=== PATIENT | female | born 2000 | race Caucasian/White ===

== ENCOUNTER 2019-04-30 10:30 | Emergency (ER) | payer OTHER, MEDICAID, SELFPAY ==
[2019-04-30 11:04] VITALS: BP 120/55; PULSE 98; RESP 16; TEMP 36.6; O2SAT 97; BMI 29.7
--- NOTE | 2019-04-30 11:28 | ED.URI ---
HPI - URI/Sore Throat General Chief Complaint: Upper Respiratory Symptoms Stated Complaint: fever,chest congestion Time Seen by Provider: 04/30/19 11:07 Source: patient Mode of arrival: Ambulatory Limitations: no limitations History of Present Illness HPI Narrative: Otherwise healthy 18-year-old female here for a couple days of sinus congestion, sore throat, cough. She does have a history of asthma. Has been using her albuterol inhaler. Also describes subjective fevers. Has not tried anything for symptoms prior to arrival. Related Data Previous Rx's Medication Instructions Recorded albuterol sulfate 2 puff INHALATION Q4-6H PRN #18 04/30/19 gram Review of Systems Constitutional Constitutional: Reports fever(s) ENT Ears, Nose, Mouth, and Throat: Denies neck pain, Reports sore throat and Denies throat swelling Cardiovascular Cardiovascular: Denies chest pain and Reports dyspnea Respiratory Respiratory: Reports cough, Reports dyspnea and Denies wheezing Gastrointestinal Gastrointestinal: Denies abdominal pain, Denies nausea and Denies vomiting Musculoskeletal Musculoskeletal: Denies neck pain Integumentary/Breasts Skin/Breast: Denies lesions and Denies rash Neurologic Neurologic: Denies behavioral changes Psychiatric Psychiatric: Denies behavioral changes Hematologic/Lymphatic Hematologic/Lymphatic: Denies easy bleeding and Denies easy bruising Allergic/Immunologic Allergic/Immunologic: Denies urticaria, Denies throat swelling and Denies wheezing [facility] Medical History Asthma (Acute) Social History marital status: lives independently: Yes Social History marital status: lives independently: Yes Exam Initial Vital Signs Initial Vital Signs: Vital Signs Temperature 97.8 F 04/30/19 11:04 Pulse Rate 98 H 04/30/19 11:04 Respiratory Rate 16 04/30/19 11:04 Blood Pressure 120/55 L 04/30/19 11:04 Pulse Oximetry 97 04/30/19 11:04 Const General: cooperative, comfortable and well developed Orientation: alert and awake HENMT Head: normal to inspection and normocephalic Ears: TM's normal bilaterally Face and sinus: normal facial exam Mouth: oral mucosae normal Throat: posterior oropharynx normal Resp Effort & Inspection: normal respiratory effort Auscultation: clear to auscultation bilaterally Cardio Rate: regular rate Rhythm: regular rhythm Skin Lesions: no lesions Rashes: no rashes Neuro General: alert and awake Cognition: normal cognition Speech: speech normal Motor: muscle tone normal throughout Extrem General: normal to inspection and capillary refill normal Psych Appearance: grossly normal and well kempt Course Vital Signs Vital signs: Vital Signs - 8 hr 04/30/19 11:04 Temperature 97.8 F Pulse Rate 98 H Respiratory Rate 16 Blood Pressure 120/55 L Pulse Oximetry 97 MDM - URI/Sore Throat MDM Narrative Medical decision making narrative: Patient is nontoxic appearing. His history and physical exam consistent with an upper respiratory infection. Low suspicion for strep throat. Low suspicion for pneumonia. Will hold on radiologic studies for now. We did discuss return precautions and follow-up instructions. We did discuss the home use of decongestants. Patient expressed understanding and agreement plan. Discharge Plan Departure Patient Disposition: Home Clinical Impression: Upper respiratory infection Qualifiers: URI type: unspecified URI Qualified Code(s): J06.9 - Acute upper respiratory infection, unspecified Instructions: DI for Viral Upper Respiratory Infection -- Adult Activity Restrictions/Additional Instructions: Recommend that you start an [id number] decongestant such as Claritin or the generic version of this medication like we discussed. Use your albuterol inhaler as needed. Contact your primary provider for a follow-up. Return to the emergency department for any new or worsening symptoms Prescriptions: New albuterol sulfate 90 mcg/actuation HFA aerosol inhaler 2 puff INHALATION Q4-6H PRN (Reason: shortness of breath or wheezing) Qty: 18 RF: 0
== END 2019-04-30 11:43 | disposition home or self-care (01) ==
PROVIDERS: Emergency Provider Emergency Medicine
DX: J06.9 Acute upper respiratory infection, unspecified (principal)
CPT/HCPCS: 99282

== ENCOUNTER 2019-06-03 14:14 | Emergency (ER) | payer OTHER, MEDICAID, SELFPAY ==
[2019-06-03 14:18] VITALS: BP 121/73; PULSE 99; RESP 16; TEMP 36.8; O2SAT 99; BMI 30.2
--- NOTE | 2019-06-03 14:24 | DI.RAD.S_ITS ---
PROCEDURE: XR FINGER RT MIN 2V INDICATIONS: injury/ lac base of right 2nd digit TECHNIQUE: AP hand, 2 views of the right and in finger(s) acquired. COMPARISON: None. FINDINGS: Bones: No fractures or dislocations. No suspicious bony lesions. Soft tissues: No suspicious soft tissue calcifications. IMPRESSION: No fracture. If the patient's symptoms do not improve recommend followup radiographs in 10 days to assess for healing sclerosis/occult injury. Dictated by: Serafin Salvador M.D. on 06/03/2019 at 14:44 Approved by: Serafin Salvador M.D. on 06/03/2019 at 14:46
[2019-06-03] MEDS: LIDOCAINE/PRILOCAINE 5 GM TOP (14:29)
--- NOTE | 2019-06-03 14:39 | ED.WOUNDLAC ---
HPI - Wound/Laceration <EDMAR Pathak - Last Filed: 06/03/19 20:09> General Chief Complaint: Wound/Laceration Stated Complaint: cut on right index finger Time Seen by Provider: 06/03/19 14:15 Source: patient Mode of arrival: Ambulatory Limitations: no limitations History of Present Illness HPI narrative: The patient is a 18-year-old female presents with her for chief complaint of a laceration to the base of her right index finger. She was doing dishes and cut herself with a knife accidentally. She states her tetanus is up-to-date as she had 1 while she was and at this point she is 2 months . She is not cleaned out. She is concerned about foreign body or chip fracture as she thinks she hit the bone. She denies any previous injuries to this area. Related Data Previous Rx's Medication Instructions Recorded albuterol sulfate 2 puff INHALATION Q4-6H PRN #18 04/30/19 gram Allergies Allergy/AdvReac Type Severity Reaction Status Date / Time No Known Drug Allergies Allergy Verified 06/03/19 14:20 Review of Systems <EDMAR Pathak - Last Filed: 06/03/19 20:09> Review of Systems Narrative: GENERAL: Denies chills, fatigue, malaise, fever, sweats. HEENT: Denies sinus pain, ear pain, sore throat, difficulty swallowing, dizziness. RESPIRATORY: Denies dyspnea, cough, wheezing, hemoptysis, sputum. CARDIOVASCULAR: Denies chest pain, palpitations, orthopnea, edema, GASTROINTESTINAL: Denies nausea, vomiting, abdominal pain, diarrhea, constipation, melena. : Denies dysuria, frequency, incontinence, hematuria, urinary retention. MUSCULOSKELETAL: denies weakness, joint pain, or bony pain SKIN: See HPI NEUROLOGIC: Denies weakness, headache, numbness, change in speech, confusion, seizures, incoordination. PSYCHIATRIC: No concerning psychosocial issues. 12 point review of systems is negative except for those stated above Patient History <EDMAR Pathak - Last Filed: 06/03/19 20:09> Medical History Asthma (Acute) Social History marital status: lives independently: Yes Smoking Status: Current every day smoker tobacco type: cigarettes Substance Use Type: does not use Exam <EDMAR Pathak - Last Filed: 06/03/19 20:09> Narrative Exam Narrative: GENERAL: This is a well-nourished, well-developed patient, appears anxious HEAD: Atraumatic. Normocephalic. No temporal or scalp tenderness. EYES: Pupils equal round and reactive. Extraocular motions intact. No scleral icterus. No injection or drainage. ENT: Nose without bleeding, purulent drainage or septal hematoma. Throat without erythema, tonsillar hypertrophy or exudate. Uvula midline. Airway patent. NECK: Trachea midline. No JVD or lymphadenopathy. Supple, nontender, no meningeal signs. CARDIOVASCULAR: Regular rate and rhythm RESPIRATORY: No cough. No increased respiratory effort. No accessory muscle use. EXTREMITIES: See skin exam. Patient is able to flex and extend right index finger against resistance. Positive radial pulse right hand. Capillary refill less than 2 seconds right index finger. BACK: Nontender without deformity or crepitance. No flank tenderness. NEURO: AOx3. SKIN: 1.5 cm linear, well-approximated laceration at the base of the right index finger, on ventral side no obvious muscle or tendon involvement. Initial Vital Signs Initial Vital Signs: Vital Signs Temperature 98.3 F 06/03/19 14:18 Pulse Rate 99 H 06/03/19 14:18 Respiratory Rate 16 06/03/19 14:18 Blood Pressure 121/73 06/03/19 14:18 Pulse Oximetry 99 06/03/19 14:18 <Lawrence Villeda MD - Last Filed: 06/14/19 18:19> Initial Vital Signs Initial Vital Signs: Vital Signs Temperature 98.3 F 06/03/19 14:18 Pulse Rate 99 H 06/03/19 14:18 Respiratory Rate 16 06/03/19 14:18 Blood Pressure 121/73 06/03/19 14:18 Pulse Oximetry 99 06/03/19 14:18 Procedures <EDMAR Pathak - Last Filed: 06/03/19 20:09> Laceration Repair Laceration 1: Site: hand Side (If applicable): right Size (cm): 1.5 Description: linear Depth: simple, single layer Pre-repair: wound explored, irrigated extensively (cleansed with iodine and hibaclense) and deep structures intact Skin layer closed with: nylon Size (cm): 5-0 Number of sutures: 3 Technique: simple, interrupted Nerve Block Nerve Block 1: Time out performed: Yes Local Anesthetic: lidocaine 1% and with bicarb Amount of anesthesia used (mL): 3 Nerve Blocks: digital Procedure Successful: Yes Patient Tolerated Procedure: Well Complications: none Course <EDMAR Pathak - Last Filed: 06/03/19 20:09> Orders Ordered: Discontinued Medications Bacitracin (Bacitracin) 1 applic TOP NOW ONE Stop: 06/03/19 16:47 Last Admin: 06/03/19 16:45 Dose: 1 applic Documented by: BRENDA Lidocaine/Prilocaine (Lidocaine-Prilocaine Cream) 5 gm TOP NOW ONE Stop: 06/03/19 14:24 Last Admin: 06/03/19 14:29 Dose: 5 gm Documented by: BRENDA Lidocaine/Sodium Bicarbonate (Buffered Lidocaine 10 Ml Syr) 10 ml INJ NOW ONE Stop: 06/03/19 14:40 Last Admin: 06/03/19 16:00 Dose: 10 ml Documented by: BRENDA Vital Signs Vital signs: Vital Signs - 8 hr 06/03/19 14:18 06/03/19 17:02 Temperature 98.3 F Pulse Rate 99 H 76 Respiratory Rate 16 16 Blood Pressure 121/73 115/52 L Pulse Oximetry 99 97 <Lawrence Villeda MD - Last Filed: 06/14/19 18:19> Orders Ordered: Discontinued Medications Bacitracin (Bacitracin) 1 applic TOP NOW ONE Stop: 06/03/19 16:47 Last Admin: 06/03/19 16:45 Dose: 1 applic Documented by: BRENDA Lidocaine/Prilocaine (Lidocaine-Prilocaine Cream) 5 gm TOP NOW ONE Stop: 06/03/19 14:24 Last Admin: 06/03/19 14:29 Dose: 5 gm Documented by: BRENDA Lidocaine/Sodium Bicarbonate (Buffered Lidocaine 10 Ml Syr) 10 ml INJ NOW ONE Stop: 06/03/19 14:40 Last Admin: 06/03/19 16:00 Dose: 10 ml Documented by: BRENDA Vital Signs Vital signs: Vital Signs - 8 hr 06/03/19 14:18 06/03/19 17:02 Temperature 98.3 F Pulse Rate 99 H 76 Respiratory Rate 16 16 Blood Pressure 121/73 115/52 L Pulse Oximetry 99 97 [facility] - Wound/Laceration <EDMAR Pathak - Last Filed: 06/03/19 20:09> Imaging Data Finger x-ray: Radiologist's impression: [address] [address] XRay Report Signed Patient: Anh Thornton RMR#: [id number] : 2000Acct:[id number] Age/Sex: 18 / FDate of Service: 06/03/19 Loc: ED Accession Number: [id number] Procedure: XR finger RT min 2V Ordering Provider: Kavita Chino PROCEDURE: XR FINGER RT MIN 2V INDICATIONS: injury/ lac base of right 2nd digit TECHNIQUE: AP hand, 2 views of the right and in finger(s) acquired. COMPARISON: None. FINDINGS: Bones: No fractures or dislocations. No suspicious bony lesions. Soft tissues: No suspicious soft tissue calcifications. IMPRESSION: No fracture. If the patient's symptoms do not improve recommend followup radiographs in 10 days to assess for healing sclerosis/occult injury. Dictated by: Serafin Salvador M.D. on 06/03/2019 at 14:44 Approved by: Serafin Salvador M.D. on 06/03/2019 at 14:46 [facility] Narrative Medical decision making narrative: The patient is a 18-year-old female who presents with a chief complaint of a laceration to her finger. Her tetanus is up-to-date. She is concerned about foreign body possible fracture, so the an x-ray was obtained. This came back negative. She has full range of motion against resistance. She is neurovascularly intact. She was sutured without incident after digital block. I discussed at length the importance of monitoring for signs and symptoms of infection such as redness swelling and pus. Discussed follow-up for suture removal in the next 7 days. Patient and have no questions or concerns upon discharge and state understanding of return precautions as well as follow-up care. Discharge Plan Departure Patient Disposition: Home Clinical Impression: Laceration Discharge Date/Time: 06/03/19 17:03 Instructions: How to Care for a Laceration After Repair, DI for Laceration Repair, DI for Minor Laceration Activity Restrictions/Additional Instructions: Your x-ray shows no acute fractures. Please monitor your wound for signs and symptoms of infection such as redness pus and discharge. Please follow up with these occur. Please follow up in approximately 7 days for suture removal. Please come back to the emergency department for any acute concerns. Prescriptions: No Action albuterol sulfate 90 mcg/actuation HFA aerosol inhaler 2 puff INHALATION Q4-6H PRN (Reason: shortness of breath or wheezing) Qty: 18 RF: 0 Referrals: [facility] [Outside]
[2019-06-03] MEDS: LIDO 1%/SOD BICARB 8.4% (10ML) 10 ML SYRINGE INJ (16:00)
[2019-06-03] MEDS: BACITRACIN OINT 0.9 GM PCKT 1 APPLIC TOP (16:45)
[2019-06-03 17:02] VITALS: BP 115/52; PULSE 76; RESP 16; O2SAT 97
== END 2019-06-03 17:03 | disposition home or self-care (01) ==
PROVIDERS: Emergency Provider Nurse Practitioner Family
DX: S61.210A Laceration without foreign body of right index finger without damage to nail, initial encounter (principal); W26.0XXA Contact with knife, initial encounter
CPT/HCPCS: 12001; 64450; 73140; 99283